=== PATIENT | male | born 1985 | race African-American/Black ===

== ENCOUNTER 2017-11-03 13:43 | Emergency (ER) | payer SELFPAY ==
[~2017-11-03 13:43] MED LIST: OFLO1DRO8 RIGHT EYE
[2017-11-03 13:44] VITALS: BP 109/54; PULSE 62; RESP 14; TEMP 97.9; O2SAT 98
[2017-11-03] MEDS ORDERED: TYLE325T PO (16:10)
--- NOTE | 2017-11-03 16:19 | RADRPT ---
EXAM DATE/TIME: 11/03/2017 15:27 [place] COMPARISON: No previous studies available for comparison. INDICATIONS : Left foot, first digit pain and swelling after dropping a glass on it. MEDICAL HISTORY : None. SURGICAL HISTORY : None. ENCOUNTER: Initial ACUITY: 4 - 6 days PAIN SCORE: 8/10 LOCATION: Left foot, first digit. FINDINGS: Two view examination of the left foot demonstrates no dislocation, or fracture. There is soft tissue swelling around the first toe. The calcaneus is intact. Bony mineralization is normal. The incidenta l finding of a hypoplastic fourth metatarsal. No definite radiopaque foreign bodies. CONCLUSION: No acute fracture or joint dislocation. Soft tissue swelling around the first toe. Emiliano Rodrigues MD on November 03, 2017 at 16:16 Board Certified Radiologist. This report was verified electronically.
--- NOTE | 2017-11-03 16:31 | PD ---
HPI Chief Complaint: Musculoskeletal Complaint Time Seen by Provider: 16:18 Travel History International Travel<30 days: No Contact w/Intl Traveler<30days: No Traveled to known affect area: No History of Present Illness HPI 31-year-old male patient presents emergency department for evaluation of right toe pain after he dropped a glass on his toe on [place] night. Right great toe is ecchymotic. Patient is ambulatory with mild limp. Patient denies any other injuries associated with this glass dropping. Patient states the glass did not break when he dropped it on his foot. There is no break of the skin or toenail involvement. PFSH Social History Alcohol Use: No Tobacco Use: No Substance Use: No Allergies-Medications (Allergen,Severity, Reaction): Coded Allergies: No Known Allergies (Verified Adverse Reaction, Unknown, 11/03/17) Reported Meds & Prescriptions Reported Meds & Active Scripts Active Reported Tylenol (Acetaminophen) 325 Mg Tab 325 Mg PO ONCE Review of Systems Except as stated in HPI: all other systems reviewed are Neg Physical Exam Narrative GENERAL: Well-nourished, well-developed 31-year-old male patient in no acute distress. Nontoxic appearing. SKIN: Focused skin assessment warm/dry. HEAD: Normocephalic. Atraumatic. EYES: No scleral icterus. No injection or drainage. NECK: Supple, trachea midline. No JVD or lymphadenopathy. CARDIOVASCULAR: Regular rate and rhythm without murmurs, gallops, or rubs. Pedal pulses +2 bilaterally. RESPIRATORY: Breath sounds equal bilaterally. No accessory muscle use. GASTROINTESTINAL: Abdomen soft, non-tender, nondistended. MUSCULOSKELETAL: Right great toe ecchymosis and mild edema noted. No obvious deformity or erythema noted. Data Data Last Documented VS Vital Signs Date Time Temp Pulse Resp B/P (MAP) Pulse Ox O2 Delivery O2 Flow Rate FiO2 11/03/17 13:44 97.9 62 14 109/54 (72) 98 Orders Orders Foot, Limited (2vws) (11/03/17 ) Ibuprofen (Motrin) (11/03/17 16:45) Ed Discharge Order (11/03/17 16:32) MDM Medical Decision Making Medical Screen Exam Complete: Yes Emergency Medical Condition: Yes Differential Diagnosis Differential diagnoses include but not limited to right great toe fracture, right great toe contusion, right great toe sprain Narrative Course X-ray of the right foot shows no acute fracture or joint dislocation. Soft tissue swelling around the first toe. Patient given ibuprofen for pain management. Patient discharged home with rice therapy instructions for the right great toe and the right great toe yoni wrapped. Patient instructed to return the emergency Department with any worsening condition but otherwise follow-up primary care. Last Impressions Foot X-Ray 11/03/17 0000 Signed Impressions: Service Date/Time: October 15:27 - CONCLUSION: No acute fracture or joint dislocation. Soft tissue swelling around the first toe. Emiliano Rodrigues MD Diagnosis Primary Impression: Contusion of great toe of right foot Qualified Codes: S90.111A - Contusion of right great toe without damage to nail, initial encounter Referrals: Primary Care Physician Patient Instructions: Contusion in Adults (ED), General Instructions Additional Instructions: Please return to emergency department if your symptoms return or worsen. Follow up with your primary care provider. Rice therapy to right great toe, rest, ice, yoni wrap with activity and elevate with resting. May take ibuprofen as needed for pain and swelling. Disposition: 01 DISCHARGE HOME Condition: Stable ImtiazKaitlin casas Iveth ROMAN Nov 03, 2017 16:31
[2017-11-03] MEDS ORDERED: IBUPROFEN 600 MG TAB PO ONE (16:45)
== END 2017-11-03 16:51 | disposition home or self-care (01) ==
LOC: NEPK 13:43
DX: S90.111A Contusion of right great toe without damage to nail, initial encounter (principal); W20.8XXA Other cause of strike by thrown, projected or falling object, initial encounter
CPT/HCPCS: 73620; 99283